=== PATIENT | male | born 1970 | race African-American/Black ===

== ENCOUNTER 2019-11-04 05:40 | Emergency (ER) | payer BC ==
[~2019-11-04] VITALS: Ht 165.1 cm; Wt 79.4 kg
[2019-11-04] MEDS ORDERED: PEPCID AC20 MG (05:48)
[2019-11-04 06:32] LABS: ABSOLUTE NEUTROPHILS 3.2 thou/uL (1.4-8.2); BASOPHILS 0.7 % (0.0-2.0); EOSINOPHILS 1.3 % (0.0-3.0); HEMATOCRIT 47.7 % (42.0-52.0); HEMOGLOBIN 16.1 gm/dL (14.0-18.0); LYMPHOCYTES 34.7 % (24.0-44.0); MCH 31.3 pg (26.0-34.0); MCHC 33.7 g/dL (28.0-37.0); MCV 92.9 fL (80.0-100.0); MONOCYTES 9.5 % (1.0-8.0); PLATELET COUNT 231 thou/uL (150-400); POLYS 53.8 % (36.0-66.0); RBC 5.13 mil/uL (4.50-6.00); RDW 14.8 % (10.5-14.5)
[2019-11-04 06:36] LABS: ANION GAP 12 mmol/L (7-16); BUN 12 mg/dL (7-18); CALCIUM 9.2 mg/dL (8.5-10.1); CHLORIDE 103 mmol/L (98-107); CO2 27 mmol/L (21-32); CREATININE 1.1 mg/dL (0.7-1.3); GLUCOSE 111 mg/dL (74-106); POTASSIUM 4.3 mmol/L (3.5-5.1); SODIUM 142 mmol/L (136-145)
[2019-11-04 06:47] LABS: ALBUMIN 4.1 g/dL (3.4-5.0); LIPASE 55 U/L (73-393); MAGNESIUM 1.9 mg/dL (1.8-2.4); SGOT 30 U/L (15-37); SGPT 28 U/L (30-65); TOTAL BILIRUBIN 0.4 mg/dL (0.2-1.0); TOTAL PROTEIN 8.4 g/dL (6.4-8.2); TROPONIN-I <0.06 ng/mL (<0.06)
[2019-11-04 07:18] LABS: APTT 25.5 Seconds (24.5-32.8); INR 1.1; PROTIME 11.2 Seconds (9.3-11.4)
[2019-11-04] MEDS ORDERED: ONDANSETRON ODT8 MG PO (08:24)
[2019-11-04] MEDS ORDERED: TRAMADOL 50 MG50 MG PO (08:24)
[2019-11-04] MEDS ORDERED: PRILOSEC OTC20 MG PO (08:56)
--- NOTE | 2019-11-04 09:06 | EKG ---
[facility] [employer] [place] [place] [address] ELECTROCARDIOGRAM REPORT Name: LAQUITA RIVAS Room #: [facility].#: [id number] Admission: Attend Phys: Discharge: Date of : 72 Report #: [id number] THIS REPORT FOR: cc: Alex Sanchez MD [facility] ~ THIS REPORT FOR: //name// [facility] ED Test Date: 2019-11-04 Test Time: 06:15:29 Pat Name: LAQUITA RIVAS Department: Room: Gender: Logistics Planning Manager: : 1970 Requested By: Andrea Read Order Number: [id number] MD: Alex Sanchez Measurements Intervals [place] Rate: 50 P: 63 WI: 139 QRS: -21 QRSD: 74 T: 15 QT: 450 QTc: 411 Interpretive Statements Sinus bradycardia Borderline left axis deviation RSR' in V1 or V2, probably normal variant No previous ECG available for comparison Electronically Signed On 11-04-2019 9:06:46 CDT by Alex Sanchez [email or web address] <ELECTRONICALLY SIGNED> By: Alex Sanchez MD, FACC 11/04/19905 4 4 Alex Sanchez MD, [facility] /EPI
[2019-11-04 09:57] VITALS: BP 157/79
== END 2019-11-04 10:02 | disposition home or self-care (01) ==
LOC: ER 05:40
PROVIDERS: Emergency Medicine
DX: K21.9 Gastro-esophageal reflux disease without esophagitis (principal); R11.2 Nausea with vomiting, unspecified; R07.89 Other chest pain; R10.32 Left lower quadrant pain; Z79.899 Other long term (current) drug therapy; Z20.828 Contact with and (suspected) exposure to other viral communicable diseases